=== PATIENT | female | born 1965 | race Caucasian/White ===

== ENCOUNTER 2019-10-15 13:07 | Outpatient (CLI) | payer MEDICARE, MEDICAID, SELFPAY | END 2019-10-15 13:08 | disposition home or self-care (01) | LOC: ANHAUDIO 13:09 | PROVIDERS: PCP Family Medicine; Visit Provider Family Medicine | DX: Q90.9 Down syndrome, unspecified (principal); H90.3 Sensorineural hearing loss, bilateral | CPT/HCPCS: 92557; 92567 ==

== ENCOUNTER 2020-10-16 09:01 | Outpatient (CLI) | payer MEDICARE, MEDICAID, SELFPAY | END 2020-10-16 09:02 | disposition home or self-care (01) | LOC: ANHAUDIO 09:03 | PROVIDERS: PCP Family Medicine; Visit Provider Family Medicine | DX: Q90.9 Down syndrome, unspecified (principal); H90.3 Sensorineural hearing loss, bilateral | CPT/HCPCS: 92557; 92567 ==